=== PATIENT | male | born 1945 | race Caucasian/White ===

== ENCOUNTER 2022-10-04 16:47 | Observation (INO) | payer MEDICARE, SELFPAY ==
[2022-10-04] VITALS (26 sets, daily range): BP systolic 101–183; BP diastolic 49–124; PULSE 60–87; RESP 11–20; TEMP 36.4–36.6; O2SAT 94–99; BMI 33.2; BMI 33.6
--- NOTE | 2022-10-04 17:01 | ECG_ITS ---
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
--- NOTE | 2022-10-04 17:01 | CT_ITS ---
The [address] [address] Patient Name: EVITA WILLSON MRN: [id number] date: 1945 Sex: M Assigned Patient Location: ER Current Patient Location: ER Accession/Order Number: [id number] Exam Date: 10/04/2022 17:15 Report Date: 10/04/2022 17:40 At the request of: JARVIS NICOLE Procedure: CT stroke head/brain wo con CT stroke head/brain wo con, 10/04/2022 5:15 PM EDT INDICATION: Diplopia COMPARISON: None. TECHNIQUE: Axial CT images of the brain from skull base to vertex, including portions of the face and sinuses, were obtained without contrast. Multiplanar reformatted images were generated and reviewed as needed. Dose reduction techniques were achieved by using automated exposure control and/or adjustment of mA and/or kV according to patient size and/or use of iterative reconstruction technique. FINDINGS: CEREBRUM: Age-appropriate atrophy is present, without visible acute hemorrhage. There is a low-density focus in the right frontal lobe inferiorly. There appears to be associated volume loss, best appreciated on comparison with the opposite side. Periventricular low density change is demonstrated, consistent with chronic small vessel disease. CEREBELLUM: No edema, hemorrhage, mass, acute infarction, or inappropriate atrophy. BRAINSTEM: No acute infarct, hemorrhage or gross structural abnormality. CSF SPACES: Ventricles, cisterns, and sulci are appropriate for age. No hydrocephalus, subarachnoid hemorrhage, or mass. SKULL: No mass or other significant visible lesion. SINUSES: Limited views demonstrate no significant mucosal thickening or fluid. ORBITS: Limited views are unremarkable. OTHER: None. IMPRESSION: Age-related deep white matter changes consistent with chronic small vessel disease superimposed on overall findings of age-appropriate cortical atrophy. Low-density focus in the right frontal lobe inferiorly. Apparent fine loss favors this being a chronic finding. However, acute infarction is not entirely ruled out. Critical results were NOTIFIED by TELEPHONE BY Dr. Elma Ferrell MD to Zeus Nicole At 10/04/2022 5:30 PM EDT. Electronically authenticated by: Elma FERRELL Date: 10/04/2022 17:40
--- NOTE | 2022-10-04 17:07 | ED_ITS ---
HPI - Neuro Symptoms/Deficit General Chief Complaint: Altered Mental Status Stated Complaint: VISUAL DISTURBANCE Time Seen by Provider: 10/04/22 16:58 Source: patient and family Mode of arrival: walk-in Limitations: no limitations History of Present Illness HPI Narrative: Patient is a [age] male with a history of diabetes who presents to the emergency department for the evaluation of a right-sided headache that began this morning at 9 AM associated with double vision. He states he developed pain in the right gnosticist and behind the right eye. He states when either if his eyes are open independently, he has no visual changes but when both of his eyes are open he has double vision and some blurry vision to the right eye. He denies chest pain, shortness of breath, speech changes, peripheral paresthesias. He has had no recent upper respiratory illness. He states that he wears reading glasses but is waiting for prescription glasses to arise as his eye doctor told him that he should wear them all the time. He is on Eliquis daily. Related Data Home Medications Medication Instructions Recorded Confirmed apixaban 5 mg tablet (Eliquis) 5 mg PO BID 10/04/22 10/04/22 lisinopril 20 mg tablet 20 mg PO DAILY 10/04/22 10/04/22 lovastatin 20 mg tablet 20 mg PO DAILY 10/04/22 10/04/22 metformin 500 mg tablet 500 mg PO BID 10/04/22 10/04/22 omeprazole 40 mg capsule,delayed 40 mg PO DAILY 10/04/22 10/04/22 release Allergies Allergy/AdvReac Type Severity Reaction Status Date / Time No Known Drug Allergies Allergy Verified 10/04/22 16:52 Review of Systems ROS Constitutional Denies: fever or chills Eyes Reports: change in vision and blurry vision Ears, nose, mouth, and throat Denies: throat pain or neck pain Cardiovascular Denies: chest pain Respiratory Denies: shortness of breath Gastrointestinal Denies: nausea or vomiting Musculoskeletal Denies: back pain or neck pain Integumentary/Breast Denies: rash Neurological Reports: headache; Denies: numbness in extremities, weakness in extremities or slurred speech PFSH PFSH Social History Smoking status: Never smoker Do you think of yourself as: straight/heterosexual Gender Identity: male Exam Narrative Exam Narrative: Gen.: Awake, alert, in no distress Head: Normocephalic, atraumatic ENT: Moist mucous membranes, no photophobia Respiratory: No respiratory distress, lungs clear bilaterally Cardio: Regular rate and rhythm Gastrointestinal: Abdomen is soft, nondistended and nontender to palpation Extremities: Moves extremities equally, no injuries noted Psych: Normal mood and affect Neuro: No focal neuro deficit, clear speech, no extremity weakness or deficits Skin: Warm, dry, intact Constitutional Vital Signs - 24 hr 10/04/22 16:52 10/04/22 17:24 10/04/22 17:30 Temperature 97.8 F Pulse Rate 63 Pulse Rate [Monitor] 73 Respiratory Rate 16 18 Blood Pressure Blood Pressure [Right Arm] 150/81 H Pulse Oximetry 97 98 97 Oxygen Delivery Method Room Air 10/04/22 17:34 10/04/22 17:35 10/04/22 17:47 Temperature Pulse Rate 62 74 76 Pulse Rate [Monitor] Respiratory Rate 15 17 13 Blood Pressure 142/69 H 183/124 H Blood Pressure [Right Arm] Pulse Oximetry 97 97 96 Oxygen Delivery Method 10/04/22 17:48 10/04/22 18:00 10/04/22 18:20 Temperature Pulse Rate 69 84 Pulse Rate [Monitor] Respiratory Rate 16 16 Blood Pressure 125/81 H 141/74 H Blood Pressure [Right Arm] Pulse Oximetry 96 99 Oxygen Delivery Method 10/04/22 18:29 10/04/22 18:30 10/04/22 18:45 Temperature Pulse Rate 73 68 60 Pulse Rate [Monitor] Respiratory Rate 16 17 11 L Blood Pressure 134/70 H 110/49 L Blood Pressure [Right Arm] Pulse Oximetry 97 96 96 Oxygen Delivery Method 10/04/22 19:00 10/04/22 19:15 10/04/22 19:30 Temperature Pulse Rate 70 74 87 Pulse Rate [Monitor] Respiratory Rate 11 L 11 L 17 Blood Pressure 101/66 119/54 L Blood Pressure [Right Arm] Pulse Oximetry 96 96 95 Oxygen Delivery Method 10/04/22 19:45 10/04/22 19:46 10/04/22 19:46 Temperature Pulse Rate 79 74 68 Pulse Rate [Monitor] Respiratory Rate 20 14 13 Blood Pressure 154/80 H 154/80 H Blood Pressure [Right Arm] Pulse Oximetry 98 97 95 Oxygen Delivery Method 10/04/22 20:00 10/04/22 20:30 10/04/22 20:30 Temperature Pulse Rate 70 67 67 Pulse Rate [Monitor] Respiratory Rate 15 12 12 Blood Pressure 135/75 H 145/77 H 145/77 H Blood Pressure [Right Arm] Pulse Oximetry 97 94 L 95 Oxygen Delivery Method 10/04/22 21:00 10/04/22 21:30 10/04/22 22:01 Temperature Pulse Rate 63 68 68 Pulse Rate [Monitor] Respiratory Rate 13 13 12 Blood Pressure 111/54 L 107/58 L 140/86 H Blood Pressure [Right Arm] Pulse Oximetry 95 Oxygen Delivery Method 10/04/22 22:20 Temperature Pulse Rate Pulse Rate [Monitor] Respiratory Rate Blood Pressure 140/80 H Blood Pressure [Right Arm] Pulse Oximetry Oxygen Delivery Method Course Vital Signs Vital signs: Vital Signs Temperature 97.8 F 10/04/22 16:52 Pulse Rate 73 10/04/22 16:52 Respiratory Rate 16 10/04/22 16:52 Blood Pressure 150/81 H 10/04/22 16:52 Pulse Oximetry 97 10/04/22 16:52 Oxygen Delivery Method Room Air 10/04/22 16:52 Temperature 97.5 F L 10/04/22 22:29 Pulse Rate 76 10/05/22 00:00 Respiratory Rate 14 10/04/22 22:29 Blood Pressure 159/90 H 10/04/22 22:29 Pulse Oximetry 97 10/04/22 22:29 Oxygen Delivery Method Room Air 10/04/22 22:29 MDM - Neuro Symptoms/Deficit MDM Narrative Medical decision making narrative: Patient was treated with IV Reglan, Benadryl, Decadron with complete cessation of his headache and he had improvement of the double vision as well. His lab studies are within normal limits, he was sent immediately for a CT stroke protocol of the head with noncontrast study which showed a possible lesion in the right frontal lobe which is not able to be ruled out as an acute infarction by the radiologist. Patient was sent for additional CTA of the head and neck with no evidence of acute abnormalities. He is resting comfortably on reevaluation. There was significant delay in the radiology read as the radiology staff had difficulty crossing the images over to the radiologist. 2144: [facility] was contacted for stroke interventional team. I discussed the case with Dr. Quintero who is in agreement with treatment plan to admit the patient here for observation, rule out with MRI and Tylenol neurology consult. Patient was given a full strength aspirin in the emergency department, Dr. Quintero recommended against additional anticoagulation. On reevaluation prior to admission to hospitalist, Dr. asencio, the patient is resting comfortably and eating Jell-O with significant improvement of headache and cessation of double vision. Patient and family are in agreement with treatment plan. Medical Records Attestation: I reviewed the patient's medical records. Lab Data Attestation: I reviewed the patient's lab results. Labs: Lab Results 10/04/22 10/04/22 Range/Units 16:59 17:00 WBC 5.2 (4.0-11.0) 10^3/uL RBC 3.89 L (4.70-6.10) 10^6/uL Hgb 11.9 L (14.0-18.0) g/dL Hct 35.2 L (42.0-54.0) % MCV 90.5 (80.0-94.0) fL MCH 30.6 (25.9-34.0) pg MCHC 33.8 (29.9-35.2) g/dL RDW 13.9 (11.0-15.0) % Plt Count 180 (150-450) 10^3/uL MPV 9.9 (9.5-13.5) fL Neut % (Auto) 58.7 (43.0-75.0) % Lymph % (Auto) 26.7 (20.5-60.0) % Mathews % (Auto) 9.8 (1.7-12.0) % Eos % (Auto) 3.8 (0.9-7.0) % Baso % (Auto) 0.6 (0.2-2.0) % Neut # (Auto) 3.1 (1.4-6.5) 10^3/uL Lymph # (Auto) 1.4 (1.2-3.8) 10^3/uL Mathews # (Auto) 0.5 (0.3-0.8) 10^3/uL Eos # (Auto) 0.2 (0.0-0.7) 10^3/uL Baso # (Auto) 0.0 (0.0-0.1) 10^3/uL Abs Immat Gran (auto) 0.02 (0.00-0.03) 10^3/uL Imm/Tot Granulo (auto) 0.4 (0.0-0.5) % PT 10.3 (9.0-11.6) sec INR 0.97 APTT 35.0 (22.3-36.2) sec Sodium 129 L (136-145) mmol/L Potassium 4.1 (3.5-5.1) mmol/L Chloride 96 L (98-107) mmol/L Carbon Dioxide 26.0 (21.0-32.0) mmol/L Anion Gap 11.1 BUN 26.0 H (7.0-18.0) mg/dL Creatinine 0.99 (0.70-1.30) mg/dL Est GFR ( Amer) >60 (>=60) Est GFR (Non-Af Amer) >60 (>=60) BUN/Creatinine Ratio 26.3 Glucose 140 H (74-106) mg/dL Calcium 8.5 (8.5-10.1) mg/dL Total Bilirubin 0.3 (0.2-1.0) mg/dL AST 16 (15-37) U/L ALT 21 (16-63) U/L Alkaline Phosphatase 68 (46-116) U/L Troponin I High Sens 18.5 (4.0-76.1) pg/mL Total Protein 7.4 (6.4-8.2) g/dL Albumin 3.7 (3.4-5.0) g/dL Globulin 3.7 g/dL Albumin/Globulin Ratio 1.0 POC Glucose 139 H (74-106) mg/dL Imaging Data CT scan - head: Attestation: I have reviewed the pertinent imaging results. Radiologist's impression: Procedure: CT stroke head/brain wo con CT stroke head/brain wo con, 10/04/2022 5:15 PM EDT INDICATION: Diplopia COMPARISON: None. TECHNIQUE: Axial CT images of the brain from skull base to vertex, including portions of the face and sinuses, were obtained without contrast. Multiplanar reformatted images were generated and reviewed as needed. Dose reduction techniques were achieved by using automated exposure control and/or adjustment of mA and/or kV according to patient size and/or use of iterative reconstruction technique. FINDINGS: CEREBRUM: Age-appropriate atrophy is present, without visible acute hemorrhage. There is a low-density focus in the right frontal lobe inferiorly. There appears to be associated volume loss, best appreciated on comparison with the opposite side. Periventricular low density change is demonstrated, consistent with chronic small vessel disease. CEREBELLUM: No edema, hemorrhage, mass, acute infarction, or inappropriate atrophy. BRAINSTEM: No acute infarct, hemorrhage or gross structural abnormality. CSF SPACES: Ventricles, cisterns, and sulci are appropriate for age. No hydrocephalus, subarachnoid hemorrhage, or mass. SKULL: No mass or other significant visible lesion. SINUSES: Limited views demonstrate no significant mucosal thickening or fluid. ORBITS: Limited views are unremarkable. OTHER: None. IMPRESSION: Age-related deep white matter changes consistent with chronic small vessel disease superimposed on overall findings of age-appropriate cortical atrophy. Low-density focus in the right frontal lobe inferiorly. Apparent fine loss favors this being a chronic finding. However, acute infarction is not entirely ruled out. Critical results were NOTIFIED by TELEPHONE BY Dr. Elma Ferrell MD to Zeus Madison At 10/04/2022 5:30 PM EDT. Electronically authenticated by: Elma FERRELL Date: 10/04/2022 17:40 ECG Data Attestation: ?I have reviewed the pertinent ECG results. (Normal sinus rhythm at a rate of sixty-two, no acute ST elevation or ectopy. EKG reviewed by attending physician.) ECG interpretation date: 10/04/22 ECG interpretation time: 21:42 Discharge Plan Discharge Chief Complaint: Altered Mental Status Clinical Impression: Double vision, Headache Patient Disposition: Admitted as Observation Time of Disposition Decision: 21:56 Condition: Good Discharge Date/Time: 10/04/22 22:21
[2022-10-04 17:09] LABS: Glucometer 139 mg/dL (74-106)
[2022-10-04] MEDS: DEXAMETHASONE SODIUM PHOSPHATE 10 MG/ML VIAL IV (17:27)
[2022-10-04] MEDS: DIPHENHYDRAMINE HCL 50 MG/ML (1ML) VIAL 12.5 MG IV (17:27)
[2022-10-04] MEDS: METOCLOPRAMIDE HCL 10 MG/2 ML VIAL INJ (17:27)
[2022-10-04 17:37] LABS: Basophils Percent Auto 0.6 % (0.2-2.0); Eosinophils Absolute Auto 0.2 10^3/uL (0.0-0.7); Eosinophils Percent Auto 3.8 % (0.9-7.0); Hematocrit 35.2 % (42.0-54.0); Hemoglobin 11.9 g/dL (14.0-18.0); Immature Granulocytes Abs Auto 0.02 10^3/uL (0.00-0.03); Immature Granulocytes Pct Auto 0.4 % (0.0-0.5); Lymphocytes Absolute Auto 1.4 10^3/uL (1.2-3.8); Lymphocytes Percent Auto 26.7 % (20.5-60.0); Mean Corpuscular HGB Conc 33.8 g/dL (29.9-35.2); Mean Corpuscular Hemoglobin 30.6 pg (25.9-34.0); Mean Corpuscular Volume 90.5 fL (80.0-94.0); Mean Platelet Volume 9.9 fL (9.5-13.5); Monocytes Absolute Auto 0.5 10^3/uL (0.3-0.8); Monocytes Percent Auto 9.8 % (1.7-12.0); Neutrophils Absolute Auto 3.1 10^3/uL (1.4-6.5); Neutrophils Percent Auto 58.7 % (43.0-75.0); Platelet Count 180 10^3/uL (150-450); Red Blood Count 3.89 10^6/uL (4.70-6.10); Red Cell Distribution Width 13.9 % (11.0-15.0); White Blood Count 5.2 10^3/uL (4.0-11.0)
[2022-10-04 17:54] LABS: Alanine Aminotransferase 21 U/L (16-63); Albumin Level 3.7 g/dL (3.4-5.0); Alkaline Phosphatase 68 U/L (46-116); Anion Gap 11.1; Aspartate Amino Transferase 16 U/L (15-37); BUN Creatinine Ratio 26.3; Bilirubin Total 0.3 mg/dL (0.2-1.0); Calcium 8.5 mg/dL (8.5-10.1); Chloride 96 mmol/L (98-107); Estimated GFR (African America >60 (>=60); Estimated GFR (Non-African Ame >60 (>=60); Globulin 3.7 g/dL; Glucose 140 mg/dL (74-106); INR 0.97; Potassium 4.1 mmol/L (3.5-5.1); Prothrombin Time 10.3 sec (9.0-11.6); Sodium 129 mmol/L (136-145); Total Protein 7.4 g/dL (6.4-8.2); Troponin I High Sensitivity 18.5 pg/mL (4.0-76.1)
--- NOTE | 2022-10-04 17:58 | CT_ITS ---
[address] [address] Patient Name: EVITA WILLSON MRN: [id number] date: 1945 Sex: M Assigned Patient Location: ER Current Patient Location: ER Accession/Order Number: [id number] Exam Date: 10/04/2022 18:10 Report Date: 10/04/2022 21:32 At the request of: JARVIS NICOLE Procedure: CT angio head EXAM: CT angio head, CT angio neck HISTORY: Headache, right eye pain and double vision. COMPARISON: Head CT without contrast on 10/04/2022. TECHNIQUE: Following IV administration of iodinated contrast, axial CT scans of the head and neck were obtained. MPR and MIP images images were obtained. Carotid stenosis is based on NASCET criteria. Dose reduction techniques were achieved by using automated exposure control and/or adjustment of mA and/or kV according to patient size and/or use of iterative reconstruction technique. FINDINGS: CTA OF THE HEAD: No major branch occlusion or significant intracranial stenosis. No aneurysm. Patent dural venous sinuses. CTA OF THE NECK: No abnormal soft tissue mass in the neck. The visualized lungs are clear. Osseous structures are intact. Aortic arch shows no aneurysm. The great vessels of the aortic arch show no significant stenosis. Vertebral arteries show no dissection. 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 The right vertebral artery shows no significant stenosis. Common carotids and internal carotids show no significant stenosis or dissection. IMPRESSION: No large vessel occlusion or significant intracranial stenosis. Patent dural venous sinuses. Common carotids, internal carotids and the right vertebral artery show no significant stenosis. 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 Electronically authenticated by: LARA BILLINGS Date: 10/04/2022 21:32
--- NOTE | 2022-10-04 17:58 | CT_ITS ---
[address] [address] Patient Name: EVITA WILLSON MRN: [id number] date: 1945 Sex: M Assigned Patient Location: ER Current Patient Location: Accession/Order Number: [id number] Exam Date: 10/04/2022 18:10 Report Date: 10/04/2022 21:32 At the request of: JARVIS NICOLE Procedure: CT angio neck EXAM: CT angio head, CT angio neck HISTORY: Headache, right eye pain and double vision. COMPARISON: Head CT without contrast on 10/04/2022. TECHNIQUE: Following IV administration of iodinated contrast, axial CT scans of the head and neck were obtained. MPR and MIP images images were obtained. Carotid stenosis is based on NASCET criteria. Dose reduction techniques were achieved by using automated exposure control and/or adjustment of mA and/or kV according to patient size and/or use of iterative reconstruction technique. FINDINGS: CTA OF THE HEAD: No major branch occlusion or significant intracranial stenosis. No aneurysm. Patent dural venous sinuses. CTA OF THE NECK: No abnormal soft tissue mass in the neck. The visualized lungs are clear. Osseous structures are intact. Aortic arch shows no aneurysm. The great vessels of the aortic arch show no significant stenosis. Vertebral arteries show no dissection. 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 The right vertebral artery shows no significant stenosis. Common carotids and internal carotids show no significant stenosis or dissection. IMPRESSION: No large vessel occlusion or significant intracranial stenosis. Patent dural venous sinuses. Common carotids, internal carotids and the right vertebral artery show no significant stenosis. 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 Electronically authenticated by: LARA BILLINGS Date: 10/04/2022 21:32
[2022-10-04] MEDS: ASPIRIN 325 MG TABLET PO (22:12)
[2022-10-05] VITALS (7 sets, daily range): BP systolic 138–153; BP diastolic 61–74; PULSE 70–89; RESP 18; TEMP 36.5; O2SAT 93–95; BMI 33.6
--- NOTE | 2022-10-05 01:24 | CA_ITS ---
Patient: EVITA WILLSON. Exam Date: 10/05/2022 : 1945 Gender:M Ordering : JESSE Swenson SISTER Admission #: [id number] Family : PRITI MOYA . Order #: [id number] CLICK HERE TO VIEW EXAM ECHOCARDIOGRAM REPORT PROCEDURE: CA ECHO DOPPLER COMPLETE INDICATIONS: CVA COMPARISON: None. DESCRIPTION: COMPLETE ECHOCARDIOGRAM Real-time transthoracic echocardiography with 2D, M-mode, spectral and color flow Doppler performed. QUALITY: Technical quality was good. LEFT VENTRICLE: Normal chamber size. Mild concentric left ventricular hypertrophy. LV EF: Global left ventricular systolic function is hyperdynamic; visually estimated ejection fraction is 65 to 70%. No significant wall motion abnormalities. DIASTOLIC: Grade II diastolic dysfunction. ATRIAL SEPTUM: Intact atrial septum. 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 LEFT ATRIUM: Mild dilatation. RIGHT ATRIUM: Severe dilatation. RIGHT VENTRICLE: Normal chamber size. Normal right ventricular systolic function. TRICUSPID VALVE: Normal mobility and thickness. No stenosis with trivial regurgitation. Mild pulmonary hypertension. RVSP 40mmHg MITRAL VALVE: Normal mobility and thickness. No evidence of mitral valve stenosis. Mild mitral annular calcification. Trivial mitral regurgitation. AORTIC VALVE: Normal trileaflet appearance. Moderately calcified aortic valve. Moderately diminished mobility. Doppler velocity suggest moderate aortic valve stenosis. DVI 0.3, LULY 1.2cm2, AV Peak velocity 3.5m/s, mean gradient 29mmHg.Trivial aortic regurgitation. AORTIC ROOT: Normal diameter and appearance. PULMONIC VALVE: Normal thickness and mobility. No stenosis. No regurgitation. PERICARDIUM: Anterior free space; trivial effusion versus fat pad.. IVC: Collapses with inspirations. Normal size. PLEURA: CONCLUSION: 1. Global left ventricular systolic function is hyperdynamic; visually estimated ejection fraction is 65 to 70%. 2. Mild left ventricular hypertrophy. 3. Biatrial enlargement. 4. Grade 2, moderate diastolic dysfunction. 5. The right ventricle is normal in size and systolic function. 6. Mildly elevated right ventricular systolic pressure; RVSP 40 mmHg. 7. Moderate aortic valve stenosis. 8. Anterior free space; trivial effusion versus fat pad. 9. 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 Adult Echocardiography Procedure Report Left Ventricle LVEDD (3.7 - 5.6 cm): 4.63 cm LVESD (2.2 - 4.0 cm): 3.17 cm LVIVS thickness (0.6 - 1.2 cm): 1.11 cm LVPW thickness (0.5 - 1.0 cm): 1.12 cm e': 0.07 m/s E - e': 14.23 LVOT Max Gradient: 4.40 mm[Hg], 4.13 mm[Hg] LVOT Area (cm2): 1.03 m/s Peak Velocity (LVOT): 1.05 m/s, 1.02 m/s Mean Velocity (LVOT): 0.76 m/s LVOT Diameter 2.26 cm Left Ventricular Ejection Fraction: 70.50 % Left Atrium LA Volume Index (2D A2C): 56.24 ml/m2 Left Atrium Systolic Dimension: 4.34 cm Mitral Valve MV E to A Ratio: 0.82 Mitral Valve A-Wave Peak Velocity: 1.17 m/s Mitral Valve E-Wave Peak Velocity: 0.96 m/s Right Ventricle RV Internal Diastolic Dimension: 3.40 cm Aorta AO Root Diam: 3.34 cm Ascending Ao Diam: 3.19 cm Aortic Valve AoV Area (Peak Jomar): 1.23 cm2, 1.20 cm2, 1.18 cm2 AoV Area (VTI): 1.32 cm2, 1.28 cm2, 1.28 cm2 Peak Velocity(Antegrade Flow): 3.51 m/s, 3.47 m/s, 3.12 m/s, 3.24 m/s, 3.49 m/s Peak Gradient(Antegrade Flow): 49.29 mm[Hg], 48.10 mm[Hg], 38.97 mm[Hg], 41.89 mm[Hg], 48.83 mm[Hg] Mean Velocity(Antegrade Flow): 2.53 m/s, 2.56 m/s, 2.30 m/s, 2.36 m/s, 2.52 m/s Mean Gradient(Antegrade Flow): 28.51 mm[Hg], 29.02 mm[Hg], 23.92 mm[Hg], 25.05 mm[Hg], 28.22 mm[Hg] Velocity Time Integral: 76.52 cm, 76.12 cm, 70.88 cm, 73.54 cm, 74.69 cm Tricuspid Valve Peak Velocity (Regurgitant Flow): 2.84 m/s, 3.04 m/s Pulmonic Valve Mean Gradient: 4.61 mm[Hg], 4.34 mm[Hg], 4.80 mm[Hg], 4.50 mm[Hg] Mean Velocity: 1.02 m/s, 0.99 m/s, 1.04 m/s, 1.00 m/s Peak Velocity: 1.37 m/s Peak Gradient: 8.42 mm[Hg], 6.88 mm[Hg], 7.81 mm[Hg], 6.88 mm[Hg] Right Atrium Right Atrium Systolic Pressure: 33.90 ml, 33.90 ml Dictated by: Olinda Chatman M.D. on 10/05/2022 at 13:20 Approved by: Olinda Chatman M.D. on 10/05/2022 at 13:28
--- NOTE | 2022-10-05 01:34 | P.PN_ITS ---
Progress Note: Subjective Subjective Interval history: diplopia HPI: this is a 77 yo male with a history of diabetes, AFIb, HTN, Dyslipidemia who presents to the emergency department for the evaluation of a right-sided headache that began this morning at 9 AM associated with double vision. He states he developed pain in the right orthodox and behind the right eye. He states when either if his eyes are open independently, he has no visual changes but when both of his eyes are open he has double vision and some blurry vision to the right eye. He denies chest pain, shortness of breath, speech changes, peripheral paresthesias. He has had no recent upper respiratory illness. He states that he wears reading glasses but is waiting for prescription glasses to arise as his eye doctor told him that he should wear them all the time. He is on Eliquis daily.. Evaluation in Ed was negative for acute findings. He has been evaluated by Teleneurologist and deemed not to be a candidate for tPA> Further w-up recommended Exam Narrative Exam Narrative: NAD, PERRLA< EOMI, Obese Neck - supple, thyroid not enlarged CTA B/L S1, S@ no Murmur or gallop ABd - obese, NT, ND, + BSs Ext - no clubbing, cyanosis or edema Neuro - diplopia, no focal deficits AAO X 3 Constitutional Vital Signs - 24 hr 10/04/22 16:52 10/04/22 17:24 10/04/22 17:30 Temperature 97.8 F Pulse Rate 63 Pulse Rate [Monitor] 73 Respiratory Rate 16 18 Blood Pressure Blood Pressure [Right Arm] 150/81 H Pulse Oximetry 97 98 97 Oxygen Delivery Method Room Air 10/04/22 17:34 10/04/22 17:35 10/04/22 17:47 Temperature Pulse Rate 62 74 76 Pulse Rate [Monitor] Respiratory Rate 15 17 13 Blood Pressure 142/69 H 183/124 H Blood Pressure [Right Arm] Pulse Oximetry 97 97 96 Oxygen Delivery Method 10/04/22 17:48 10/04/22 18:00 10/04/22 18:20 Temperature Pulse Rate 69 84 Pulse Rate [Monitor] Respiratory Rate 16 16 Blood Pressure 125/81 H 141/74 H Blood Pressure [Right Arm] Pulse Oximetry 96 99 Oxygen Delivery Method 10/04/22 18:29 10/04/22 18:30 10/04/22 18:45 Temperature Pulse Rate 73 68 60 Pulse Rate [Monitor] Respiratory Rate 16 17 11 L Blood Pressure 134/70 H 110/49 L Blood Pressure [Right Arm] Pulse Oximetry 97 96 96 Oxygen Delivery Method 10/04/22 19:00 10/04/22 19:15 10/04/22 19:30 Temperature Pulse Rate 70 74 87 Pulse Rate [Monitor] Respiratory Rate 11 L 11 L 17 Blood Pressure 101/66 119/54 L Blood Pressure [Right Arm] Pulse Oximetry 96 96 95 Oxygen Delivery Method 10/04/22 19:45 10/04/22 19:46 10/04/22 19:46 Temperature Pulse Rate 79 74 68 Pulse Rate [Monitor] Respiratory Rate 20 14 13 Blood Pressure 154/80 H 154/80 H Blood Pressure [Right Arm] Pulse Oximetry 98 97 95 Oxygen Delivery Method 10/04/22 20:00 10/04/22 20:30 10/04/22 20:30 Temperature Pulse Rate 70 67 67 Pulse Rate [Monitor] Respiratory Rate 15 12 12 Blood Pressure 135/75 H 145/77 H 145/77 H Blood Pressure [Right Arm] Pulse Oximetry 97 94 L 95 Oxygen Delivery Method 10/04/22 21:00 10/04/22 21:30 10/04/22 22:01 Temperature Pulse Rate 63 68 68 Pulse Rate [Monitor] Respiratory Rate 13 13 12 Blood Pressure 111/54 L 107/58 L 140/86 H Blood Pressure [Right Arm] Pulse Oximetry 95 Oxygen Delivery Method 10/04/22 22:30 10/04/22 22:20 10/04/22 22:29 Temperature 97.5 F L Pulse Rate 86 82 Pulse Rate [Monitor] Respiratory Rate 16 Blood Pressure 140/80 H Blood Pressure [Right Arm] 159/90 H Pulse Oximetry 97 Oxygen Delivery Method Room Air 10/04/22 22:29 10/04/22 22:29 10/05/22 00:00 Temperature Pulse Rate 76 Pulse Rate [Monitor] 82 82 Respiratory Rate 14 14 Blood Pressure Blood Pressure [Right Arm] Pulse Oximetry 97 Oxygen Delivery Method Room Air Progress Note: Objective Labs Labs: Short CBC 10/04/22 Range/Units 17:00 WBC 5.2 (4.0-11.0) 10^3/uL Hgb 11.9 L (14.0-18.0) g/dL Hct 35.2 L (42.0-54.0) % Plt Count 180 (150-450) 10^3/uL BMP 10/04/22 17:00 Sodium 129 L Potassium 4.1 Chloride 96 L Carbon Dioxide 26.0 BUN 26.0 H Creatinine 0.99 Glucose 140 H Calcium 8.5 Liver Function 10/04/22 Range/Units 17:00 Total Bilirubin 0.3 (0.2-1.0) mg/dL AST 16 (15-37) U/L ALT 21 (16-63) U/L Alkaline Phosphatase 68 (46-116) U/L Albumin 3.7 (3.4-5.0) g/dL Progress Note: A&P Assessment and Plan (1) Double vision: Assessment and Plan: patient presents with acute neurological deficits found to be not a cnadididate for tPa CT - (-) Has being evaluated by tele- Neuro Recommendations to continue Eliquis and ASA MRI of the brain and ECHO with boublled ordered F/U with Neuro in AM (2) Headache: Assessment and Plan: symptoms control (3) Afib: Assessment and Plan: symptoms control (4) HTN (hypertension): Assessment and Plan: permissive HTN going to be allowed (5) Dyslipidemia: Assessment and Plan: continue with statins, F/U lipid profile (6) Obesity: Plan differ for OP management Telemedicine Attestation Telemedicine Attestation I conducted this encounter from [[place]] via secure live, [id number] video conference with the patient, CHARGE TEST-CHARGES located at [facility] with [diplopia]. Prior to the interview, the risks and benefits of telemedicine were discussed with the patient and verbal consent was obtained.
[2022-10-05 04:55] LABS: Basophils Percent Auto 0.2 % (0.2-2.0); Eosinophils Percent Auto 0.2 % (0.9-7.0); Hematocrit 35.6 % (42.0-54.0); Immature Granulocytes Abs Auto 0.03 10^3/uL (0.00-0.03); Immature Granulocytes Pct Auto 0.6 % (0.0-0.5); Lymphocytes Absolute Auto 0.7 10^3/uL (1.2-3.8); Lymphocytes Percent Auto 12.6 % (20.5-60.0); Mean Corpuscular HGB Conc 33.7 g/dL (29.9-35.2); Mean Corpuscular Hemoglobin 30.4 pg (25.9-34.0); Mean Corpuscular Volume 90.1 fL (80.0-94.0); Mean Platelet Volume 9.8 fL (9.5-13.5); Monocytes Absolute Auto 0.2 10^3/uL (0.3-0.8); Monocytes Percent Auto 2.8 % (1.7-12.0); Neutrophils Absolute Auto 4.5 10^3/uL (1.4-6.5); Neutrophils Percent Auto 83.6 % (43.0-75.0); Platelet Count 180 10^3/uL (150-450); Red Blood Count 3.95 10^6/uL (4.70-6.10); Red Cell Distribution Width 13.5 % (11.0-15.0); White Blood Count 5.3 10^3/uL (4.0-11.0)
[2022-10-05 05:15] LABS: Chol HDL Ratio 3.6; Cholesterol 157 mg/dL (<=200); HDL Cholesterol 44 mg/dL (40-60); LDL Cholesterol Calculated 99.4 mg/dL; Triglycerides 68 mg/dL (<=150); VLDL CHOLESTEROL 13.6 mg/dL
[2022-10-05 07:24] LABS: Glucometer 217 mg/dL (74-106)
[2022-10-05] MEDS: INSULIN ASPART 300 UNIT/3 ML PEN SUBQ ×2 (08:56→11:49)
[2022-10-05] MEDS: APIXABAN 5 MG TABLET PO (08:57)
[2022-10-05] MEDS: LISINOPRIL 20 MG TABLET PO (08:57)
[2022-10-05] MEDS: OMEPRAZOLE 40 MG CAPSULE.DR PO (08:57)
[2022-10-05] MEDS: ASPIRIN 325 MG TABLET.DR PO (08:57)
[2022-10-05 10:24] LABS: Estimated Average Glucose 126 mg/dL
[2022-10-05 10:33] LABS: Thyroid Stimulating Hormone 0.514 uIU/mL (0.358-3.740)
[2022-10-05 10:42] LABS: Alanine Aminotransferase 27 U/L (16-63); Albumin Level 3.6 g/dL (3.4-5.0); Alkaline Phosphatase 67 U/L (46-116); Anion Gap 15.7; Aspartate Amino Transferase 19 U/L (15-37); Bilirubin Total 0.3 mg/dL (0.2-1.0); Calcium 8.7 mg/dL (8.5-10.1); Carbon Dioxide 22.9 mmol/L (21.0-32.0); Chloride 101 mmol/L (98-107); Estimated GFR (African America >60 (>=60); Estimated GFR (Non-African Ame >60 (>=60); Globulin 3.7 g/dL; Glucose 222 mg/dL (74-106); Potassium 4.6 mmol/L (3.5-5.1); Sodium 135 mmol/L (136-145); Total Protein 7.3 g/dL (6.4-8.2)
[2022-10-05 11:20] LABS: Glucometer 180 mg/dL (74-106)
--- NOTE | 2022-10-05 11:37 | SWNOTE1 ---
CONCHITA met with pt to discuss dc needs. Pt lives at home with his . 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 Pt does not use any medical equipment and is independent at home. At this time pt does not have any discharge needs. CONCHITA reviewed [facility] form with pt, he voiced understanding. Pt signed form, original given to pt and copy placed on chart.
--- NOTE | 2022-10-05 11:42 | CT_ITS ---
[address] [address] Patient Name: EVITA WILLSON MRN: [id number] date: 1945 Sex: M Assigned Patient Location: [place] Current Patient Location: [place] Accession/Order Number: [id number] Exam Date: 10/05/2022 12:20 Report Date: 10/05/2022 13:05 At the request of: PRITI MOYA Procedure: CT stroke head/brain wo con EXAMINATION: CT stroke head/brain wo con HISTORY: cannot do MRI, recheck/compare to 10/04/22 COMPARISON: No relevant comparison available. TECHNIQUE: Axial CT images were obtained without IV contrast. Dose reduction techniques were achieved by using automated exposure control and/or adjustment of mA and/or kV according to patient size and/or use of iterative reconstruction technique. FINDINGS: BRAIN: No edema, hemorrhage, mass, acute infarction, or inappropriate atrophy. CSF SPACES: No hydrocephalus, subarachnoid hemorrhage, or mass. Appropriate for age. SKULL: No fracture, mass, or other significant visible lesion. SINUSES: No significant mucosal thickening or fluid on the limited views. ORBITS: No appreciable abnormality on the limited views. OTHER: Negative IMPRESSION: 1. No acute cranial hemorrhage or CT evidence of acute ischemia. 2. Stable atrophy and chronic small vessel ischemic changes. 3. Clear sinuses. Electronically authenticated by: LEXI PRESLEY Date: 10/05/2022 13:05
[2022-10-05] MEDS: ACETAMINOPHEN 325 MG TABLET 650 MG PO (11:49)
--- NOTE | 2022-10-05 13:57 | P.HP_ITS ---
H&P: HPI History of Present Illness Chief complaint: VISUAL DISTURBANCE, HEADACHE, RULE OUT CVA Narrative: patient is a 77-year-old male with past medical history of type 2 diabetes, hypertension, chronic atrial fibrillation on Eliquis, and hyperlipidemia who presented yesterday with sudden onset of altered vision of the right eye. Patient also reports he has a headache that is more focused behind the right eye. He denied any slurred speech and a right arm numbness or tingling any confusion. He reports that this is happening before that only lasted a few minutes and resolved on its own. This time the symptoms seems to be more consistent. He has been worked up by an coiled tubing operator recently who told him there was an abnormality in his eye exam on the right. Patient denies ever seeing an purchasing coordinator in the past. He does have type 2 diabetes that reports he has never been told he has diabetic retinopathy. He denies ever having a past history of strokes. He follows regularly with his value analysis coordinator at [facility] and he was scheduled to have a follow-up visit with him in November. He says blood pressures been under control he denies any rapid heart rates and he has been compliant on his eliquis. He has an ex-smoker quit about forty years ago and today he reports his only issue is right sided visual changes mostly with double vision but when he covers either his left or right eye he can see fine but when trying to see out of both eyes at the same time is when his double vision occurs. The emergency department performed a CTA of the head and neck there was no evidence of any carotid artery stenosis, there was small vessel ischemic changes no acute strokes were noted. The only finding was a mild left vertebral artery stenosis. Patient also has had a echocardiogram this morning. Telemetry stroke was notified of patient in the Emergency Room Dr. Quintero recommended observation and to reconsult them today. Review of Systems ROS Narrative ROS: a complete review of systems were reviewed with patient and are positive as below or listed in History of Chief Complaint. General: no fever, chills, night sweats Head: no headache, trauma, visual changes, nausea or vomiting Skin: no reported rashes, itching or sores Eyes: blurriness of vision and double vision of the right eye Ears: no reported hearing loss, vertigo, earache, or tinnitus Throat: no sore throat, hoarseness, swelling of neck, or tongue pain Heart: no chest pain Lungs: no shortness of breath or cough GI: no diarrhea or vomiting/nausea Urinary: no urinary urgency, frequency or pain Neuro: no numbness or tingling HEM: no bleeding issues or bruising ENDO: no thyroid problems Psych: no anxiety or depression PFSH PFS Social History Smoking status: Never smoker Do you think of yourself as: straight/heterosexual Gender Identity: male Meds Home Medications and Allergies Home Medications Medication Instructions Recorded Confirmed Type apixaban 5 mg tablet (Eliquis) 5 mg PO BID 10/04/22 10/04/22 History lisinopril 20 mg tablet 20 mg PO DAILY 10/04/22 10/04/22 History lovastatin 20 mg tablet 20 mg PO DAILY 10/04/22 10/04/22 History metformin 500 mg tablet 500 mg PO BID 10/04/22 10/04/22 History omeprazole 40 mg capsule,delayed 40 mg PO DAILY 10/04/22 10/04/22 History release Allergies Allergy/AdvReac Type Severity Reaction Status Date / Time No Known Drug Allergies Allergy Verified 10/04/22 16:52 Exam Narrative Exam Narrative: General: Patient is alert, and oriented to person, place and time with normal affect, proper hygiene Skin: no visible rashes, or ulcers Head: atraumatic, acephalic Eyes: PERRLA, no nystagmus present, conjunctiva clear, no scleral icterus, patient reports normal vision out of right and left eyes when opposite eye is covered but together notes blurriness and double vision of right eye Ears: normal Tympanic Membrane, normal gross auditory acuity Nose: symmetric, no discharge, no maxillary or frontal sinus tenderness Mouth/Throat: no erythema, exudate, or tonsillar enlargement, normal dentition Neck: no masses palpated, normal thyroid, no JVD or audible carotid bruits Heart: Normal rate and rhythm, no murmurs/rubs/gallops Lungs: no audible wheezes, crackles and normal breath sounds all lung murillo Abdomen: Normal audible bowel sounds, no distension, No palpable masses, no organomegaly, no rebound/guarding/ or rigidity Musculoskeletal: muscle atrophy noted, ROM is limited due to being in hospital bed, no swelling bilateral lower extremities Vascular: Normal carotid, radial, femoral, posterior tibial, and dorsalis pedis pulses Lymph: no supraclavicular, axillary, or anterior/posterior cervical adenopathy Neuro: CN II-X grossly intact, normal sensation upper and lower extremities Constitutional Vital Signs - 24 hr 10/04/22 16:52 10/04/22 17:24 10/04/22 17:30 Temperature 97.8 F Pulse Rate 63 Pulse Rate [Monitor] 73 Respiratory Rate 16 18 Blood Pressure Blood Pressure [Left Arm] Blood Pressure [Right Arm] 150/81 H Pulse Oximetry 97 98 97 Oxygen Delivery Method Room Air 10/04/22 17:34 10/04/22 17:35 10/04/22 17:47 Temperature Pulse Rate 62 74 76 Pulse Rate [Monitor] Respiratory Rate 15 17 13 Blood Pressure 142/69 H 183/124 H Blood Pressure [Left Arm] Blood Pressure [Right Arm] Pulse Oximetry 97 97 96 Oxygen Delivery Method 10/04/22 17:48 10/04/22 18:00 10/04/22 18:20 Temperature Pulse Rate 69 84 Pulse Rate [Monitor] Respiratory Rate 16 16 Blood Pressure 125/81 H 141/74 H Blood Pressure [Left Arm] Blood Pressure [Right Arm] Pulse Oximetry 96 99 Oxygen Delivery Method 10/04/22 18:29 10/04/22 18:30 10/04/22 18:45 Temperature Pulse Rate 73 68 60 Pulse Rate [Monitor] Respiratory Rate 16 17 11 L Blood Pressure 134/70 H 110/49 L Blood Pressure [Left Arm] Blood Pressure [Right Arm] Pulse Oximetry 97 96 96 Oxygen Delivery Method 10/04/22 19:00 10/04/22 19:15 10/04/22 19:30 Temperature Pulse Rate 70 74 87 Pulse Rate [Monitor] Respiratory Rate 11 L 11 L 17 Blood Pressure 101/66 119/54 L Blood Pressure [Left Arm] Blood Pressure [Right Arm] Pulse Oximetry 96 96 95 Oxygen Delivery Method 10/04/22 19:45 10/04/22 19:46 10/04/22 19:46 Temperature Pulse Rate 79 74 68 Pulse Rate [Monitor] Respiratory Rate 20 14 13 Blood Pressure 154/80 H 154/80 H Blood Pressure [Left Arm] Blood Pressure [Right Arm] Pulse Oximetry 98 97 95 Oxygen Delivery Method 10/04/22 20:00 10/04/22 20:30 10/04/22 20:30 Temperature Pulse Rate 70 67 67 Pulse Rate [Monitor] Respiratory Rate 15 12 12 Blood Pressure 135/75 H 145/77 H 145/77 H Blood Pressure [Left Arm] Blood Pressure [Right Arm] Pulse Oximetry 97 94 L 95 Oxygen Delivery Method 10/04/22 21:00 10/04/22 21:30 10/04/22 22:01 Temperature Pulse Rate 63 68 68 Pulse Rate [Monitor] Respiratory Rate 13 13 12 Blood Pressure 111/54 L 107/58 L 140/86 H Blood Pressure [Left Arm] Blood Pressure [Right Arm] Pulse Oximetry 95 Oxygen Delivery Method 10/04/22 22:30 10/04/22 22:20 10/04/22 22:29 Temperature 97.5 F L Pulse Rate 86 82 Pulse Rate [Monitor] Respiratory Rate 16 Blood Pressure 140/80 H Blood Pressure [Left Arm] Blood Pressure [Right Arm] 159/90 H Pulse Oximetry 97 Oxygen Delivery Method Room Air 10/04/22 22:29 10/04/22 22:29 10/05/22 00:00 Temperature Pulse Rate 76 Pulse Rate [Monitor] 82 82 Respiratory Rate 14 14 Blood Pressure Blood Pressure [Left Arm] Blood Pressure [Right Arm] Pulse Oximetry 97 Oxygen Delivery Method Room Air 10/05/22 02:00 10/05/22 04:00 10/05/22 05:44 Temperature 97.7 F Pulse Rate 81 81 89 Pulse Rate [Monitor] Respiratory Rate 18 Blood Pressure Blood Pressure [Left Arm] 153/61 H Blood Pressure [Right Arm] Pulse Oximetry 93 L Oxygen Delivery Method Room Air 10/05/22 06:00 10/05/22 08:04 10/05/22 13:24 Temperature 97.7 F Pulse Rate 81 87 70 Pulse Rate [Monitor] Respiratory Rate 18 Blood Pressure Blood Pressure [Left Arm] 138/74 H Blood Pressure [Right Arm] Pulse Oximetry 95 Oxygen Delivery Method Room Air Results Labs Labs: Short CBC 10/04/22 10/05/22 Range/Units 17:00 04:22 WBC 5.2 5.3 (4.0-11.0) 10^3/uL Hgb 11.9 L 12.0 L (14.0-18.0) g/dL Hct 35.2 L 35.6 L (42.0-54.0) % Plt Count 180 180 (150-450) 10^3/uL BMP 10/04/22 10/05/22 17:00 09:15 Sodium 129 L 135 L Potassium 4.1 4.6 Chloride 96 L 101 Carbon Dioxide 26.0 22.9 BUN 26.0 H 25.0 H Creatinine 0.99 1.04 Glucose 140 H 222 H Calcium 8.5 8.7 Liver Function 10/04/22 10/05/22 Range/Units 17:00 09:15 Total Bilirubin 0.3 0.3 (0.2-1.0) mg/dL AST 16 19 (15-37) U/L ALT 21 27 (16-63) U/L Alkaline Phosphatase 68 67 (46-116) U/L Albumin 3.7 3.6 (3.4-5.0) g/dL Assessment and Plan Assessment and Plan (1) Double vision: Assessment and Plan: original CTA of the head and neck showed chronic small vessel ischemic changes, but no carotid artery stenosis and a mild stenosis of the left vertebral artery no other acute findings for stroke. MRI was suggested by telemetry stroke however patient has a implanted spinal stimulator so cannot perform MRI. A repeat CT scan of the brain did not show any acute stroke when compared to the one done last night. I opted to not use IV contrast given patient is on metformin and did not want to induce a contrast nephropathy. Patient did have an echocardiogram which showed systolic function hyperdynamic with an ejection fraction of 65-70 percent, mild left ventricular hypertrophy, biatrial enlargement, with grade 2 moderate diastolic dysfunction. Also had mildly elevated right ventricular systolic pressures and moderate aortic valve stenosis. 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 The results of his echocardiogram was discussed with patient he does have a value analysis coordinator who he follows with and is due to see him for his routine care in November. We'll recommend closer evaluation as I do not have a comparison for this echocardiogram. Consultation by telemetry stroke. low suspicion this is active stroke or CVA symptoms (2) Headache: Assessment and Plan: this could be an atypical migraine, cluster headache, or underlying optic nerve issue. All seems to be focused more behind the right eye, we'll get him a close outpatient follow-up with ophthalmology (3) Afib: Assessment and Plan: continue lisinopril and eliquis (4) HTN (hypertension): Assessment and Plan: stable (5) Dyslipidemia: Assessment and Plan: lipids stable 157/99/44/68 continue lovastatin (6) Obesity: (7) Type 2 diabetes mellitus: Assessment and Plan: will need to hold metformin due to contrast for 3 days. ha1c 6.0 Plan full code patient admitted in observation status and is not expected to stay more than 2 midnights eliquis for DVT prophylaxis
--- NOTE | 2022-10-05 14:43 | PM.DS1 ---
DS: Providers Provider Date of admission: 10/04/22 22:21 Primary care physician: Toni Sexton Admitting clinician: Edin Larkin Consults: 10/05/22 09:09 Consult to Telestroke Routine Consulting Provider: Hospitalist Attending physician on discharge: Maggie Pickett DS: Diagnosis Discharge Diagnosis (1) Double vision: Assessment and plan: original CTA of the head and neck showed chronic small vessel ischemic changes, but no carotid artery stenosis and a mild stenosis of the left vertebral artery no other acute findings for stroke. MRI was suggested by telemetry stroke however patient has a implanted spinal stimulator so cannot perform MRI. A repeat CT scan of the brain did not show any acute stroke when compared to the one done last night. I opted to not use IV contrast given patient is on metformin and did not want to induce a contrast nephropathy. Patient did have an echocardiogram which showed systolic function hyperdynamic with an ejection fraction of 65-70 percent, mild left ventricular hypertrophy, biatrial enlargement, with grade 2 moderate diastolic dysfunction. Also had mildly elevated right ventricular systolic pressures and moderate aortic valve stenosis. 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 The results of his echocardiogram was discussed with patient he does have a complex care nurse who he follows with and is due to see him for his routine care in November. We'll recommend closer evaluation as I do not have a comparison for this echocardiogram. Consultation by telemetry stroke no further recs. low suspicion this is active stroke or CVA symptoms (2) Headache: Assessment and plan: this could be an atypical migraine, cluster headache, or underlying optic nerve issue. All seems to be focused more behind the right eye, we'll get him a close outpatient follow-up with ophthalmology (3) Afib: Assessment and plan: continue lisinopril and eliquis (4) HTN (hypertension): Assessment and plan: stable on lisinopril (5) Dyslipidemia: Assessment and plan: lipids stable 157/99/44/68 continue lovastatin (6) Obesity: (7) Type 2 diabetes mellitus: Assessment and plan: will need to hold metformin due to contrast for 3 days. ha1c 6.0 DS: Summary Time Spent with Patient Time attestation: Total time spent providing and/or coordinating discharge services: Exam Narrative Exam Narrative: no change in exam since H and P exam performed on same date Constitutional Vital Signs - 24 hr 10/04/22 16:52 10/04/22 17:24 10/04/22 17:30 Temperature 97.8 F Pulse Rate 63 Pulse Rate [Monitor] 73 Respiratory Rate 16 18 Blood Pressure Blood Pressure [Left Arm] Blood Pressure [Right Arm] 150/81 H Pulse Oximetry 97 98 97 Oxygen Delivery Method Room Air 10/04/22 17:34 10/04/22 17:35 10/04/22 17:47 Temperature Pulse Rate 62 74 76 Pulse Rate [Monitor] Respiratory Rate 15 17 13 Blood Pressure 142/69 H 183/124 H Blood Pressure [Left Arm] Blood Pressure [Right Arm] Pulse Oximetry 97 97 96 Oxygen Delivery Method 10/04/22 17:48 10/04/22 18:00 10/04/22 18:20 Temperature Pulse Rate 69 84 Pulse Rate [Monitor] Respiratory Rate 16 16 Blood Pressure 125/81 H 141/74 H Blood Pressure [Left Arm] Blood Pressure [Right Arm] Pulse Oximetry 96 99 Oxygen Delivery Method 10/04/22 18:29 10/04/22 18:30 10/04/22 18:45 Temperature Pulse Rate 73 68 60 Pulse Rate [Monitor] Respiratory Rate 16 17 11 L Blood Pressure 134/70 H 110/49 L Blood Pressure [Left Arm] Blood Pressure [Right Arm] Pulse Oximetry 97 96 96 Oxygen Delivery Method 10/04/22 19:00 10/04/22 19:15 10/04/22 19:30 Temperature Pulse Rate 70 74 87 Pulse Rate [Monitor] Respiratory Rate 11 L 11 L 17 Blood Pressure 101/66 119/54 L Blood Pressure [Left Arm] Blood Pressure [Right Arm] Pulse Oximetry 96 96 95 Oxygen Delivery Method 10/04/22 19:45 10/04/22 19:46 10/04/22 19:46 Temperature Pulse Rate 79 74 68 Pulse Rate [Monitor] Respiratory Rate 20 14 13 Blood Pressure 154/80 H 154/80 H Blood Pressure [Left Arm] Blood Pressure [Right Arm] Pulse Oximetry 98 97 95 Oxygen Delivery Method 10/04/22 20:00 10/04/22 20:30 10/04/22 20:30 Temperature Pulse Rate 70 67 67 Pulse Rate [Monitor] Respiratory Rate 15 12 12 Blood Pressure 135/75 H 145/77 H 145/77 H Blood Pressure [Left Arm] Blood Pressure [Right Arm] Pulse Oximetry 97 94 L 95 Oxygen Delivery Method 10/04/22 21:00 10/04/22 21:30 10/04/22 22:01 Temperature Pulse Rate 63 68 68 Pulse Rate [Monitor] Respiratory Rate 13 13 12 Blood Pressure 111/54 L 107/58 L 140/86 H Blood Pressure [Left Arm] Blood Pressure [Right Arm] Pulse Oximetry 95 Oxygen Delivery Method 10/04/22 22:30 10/04/22 22:20 10/04/22 22:29 Temperature 97.5 F L Pulse Rate 86 82 Pulse Rate [Monitor] Respiratory Rate 16 Blood Pressure 140/80 H Blood Pressure [Left Arm] Blood Pressure [Right Arm] 159/90 H Pulse Oximetry 97 Oxygen Delivery Method Room Air 10/04/22 22:29 10/04/22 22:29 10/05/22 00:00 Temperature Pulse Rate 76 Pulse Rate [Monitor] 82 82 Respiratory Rate 14 14 Blood Pressure Blood Pressure [Left Arm] Blood Pressure [Right Arm] Pulse Oximetry 97 Oxygen Delivery Method Room Air 10/05/22 02:00 10/05/22 04:00 10/05/22 05:44 Temperature 97.7 F Pulse Rate 81 81 89 Pulse Rate [Monitor] Respiratory Rate 18 Blood Pressure Blood Pressure [Left Arm] 153/61 H Blood Pressure [Right Arm] Pulse Oximetry 93 L Oxygen Delivery Method Room Air 10/05/22 06:00 10/05/22 08:04 10/05/22 13:24 Temperature 97.7 F Pulse Rate 81 87 70 Pulse Rate [Monitor] Respiratory Rate 18 Blood Pressure Blood Pressure [Left Arm] 138/74 H Blood Pressure [Right Arm] Pulse Oximetry 95 Oxygen Delivery Method Room Air DS: Data Data Completed and Pending Labs on day of discharge: Labs from last 24 hours 10/05/22 10/05/22 10/05/22 11:19 09:15 07:23 WBC RBC Hgb Hct MCV MCH MCHC RDW Plt Count MPV Neut % (Auto) Lymph % (Auto) [place] % (Auto) Eos % (Auto) Baso % (Auto) Neut # (Auto) Lymph # (Auto) [place] # (Auto) Eos # (Auto) Baso # (Auto) Abs Immat Gran (auto) Imm/Tot Granulo (auto) PT INR APTT Sodium 135 L Potassium 4.6 Chloride 101 Carbon Dioxide 22.9 Anion Gap 15.7 BUN 25.0 H Creatinine 1.04 Est GFR ( Amer) >60 Est GFR (Non-Af Amer) >60 BUN/Creatinine Ratio 24.0 Glucose 222 H Estimat Average Glucose 126 Hemoglobin A1c 6.0 Calcium 8.7 Total Bilirubin 0.3 AST 19 ALT 27 Alkaline Phosphatase 67 Troponin I High Sens Total Protein 7.3 Albumin 3.6 Globulin 3.7 Albumin/Globulin Ratio 1.0 Triglycerides Cholesterol LDL Cholesterol, Calc VLDL Cholesterol HDL Cholesterol Cholesterol/HDL Ratio TSH 0.514 POC Glucose 180 H 217 H 10/05/22 10/04/22 10/04/22 04:22 17:00 16:59 WBC 5.3 5.2 RBC 3.95 L 3.89 L Hgb 12.0 L 11.9 L Hct 35.6 L 35.2 L MCV 90.1 90.5 MCH 30.4 30.6 MCHC 33.7 33.8 RDW 13.5 13.9 Plt Count 180 180 MPV 9.8 9.9 Neut % (Auto) 83.6 H 58.7 Lymph % (Auto) 12.6 L 26.7 [place] % (Auto) 2.8 9.8 Eos % (Auto) 0.2 L 3.8 Baso % (Auto) 0.2 0.6 Neut # (Auto) 4.5 3.1 Lymph # (Auto) 0.7 L 1.4 [place] # (Auto) 0.2 L 0.5 Eos # (Auto) 0.0 0.2 Baso # (Auto) 0.0 0.0 Abs Immat Gran (auto) 0.03 0.02 Imm/Tot Granulo (auto) 0.6 H 0.4 PT 10.3 INR 0.97 APTT 35.0 Sodium 129 L Potassium 4.1 Chloride 96 L Carbon Dioxide 26.0 Anion Gap 11.1 BUN 26.0 H Creatinine 0.99 Est GFR ( Amer) >60 Est GFR (Non-Af Amer) >60 BUN/Creatinine Ratio 26.3 Glucose 140 H Estimat Average Glucose Hemoglobin A1c Calcium 8.5 Total Bilirubin 0.3 AST 16 ALT 21 Alkaline Phosphatase 68 Troponin I High Sens 18.5 Total Protein 7.4 Albumin 3.7 Globulin 3.7 Albumin/Globulin Ratio 1.0 Triglycerides 68 Cholesterol 157 LDL Cholesterol, Calc 99.4 VLDL Cholesterol 13.6 HDL Cholesterol 44 Cholesterol/HDL Ratio 3.6 TSH POC Glucose 139 H Discharge Plan Discharge Disposition: Home, Self-Care (OBS FBC) Condition: Good Discharge Medications: Continued Eliquis 5 mg tablet 5 mg PO BID lisinopril 20 mg tablet 20 mg PO DAILY lovastatin 20 mg tablet 20 mg PO DAILY omeprazole 40 mg capsule,delayed release(DR/EC) 40 mg PO DAILY Held metformin 500 mg tablet 500 mg PO BID Hold Instructions: Resume on 10/07/22. Activity: increase activity as tolerated Diet: advance to your usual diet Follow Up Appointments: New patient appointment with publicity person Dr. Sawant -mondayOctober 10 at 1:30, in [facility] . Brick buildings to left of hospital,they are marked. Patient will have eyes dilated and plan to be there a while. [phone] [facility] [address] Saab, 1-2 weeks
--- NOTE | 2022-10-06 15:40 | CM.DCFOLLOWU ---
Person spoke with: How are you feeling? How is your pain? Did you understand your discharge instructions? Do you have any questions about your discharge instructions? Were you given any prescriptions at discharge? Were you able to get your prescriptions filled? Do you understand how to take your medications as ordered? Do you have any questions about your follow up appointment and do you plan to keep your follow up appointment? Is there anything else that you would like to discuss? Questions/Comments/Concerns/Other: No answer 10/06/22
--- NOTE | 2022-10-10 15:38 | CM.DCFOLLOWU ---
Person spoke with: Person who answered telephone states This is wrong number I do not know a Kaleb. How are you feeling? How is your pain? Did you understand your discharge instructions? Do you have any questions about your discharge instructions? Were you given any prescriptions at discharge? Were you able to get your prescriptions filled? Do you understand how to take your medications as ordered? Do you have any questions about your follow up appointment and do you plan to keep your follow up appointment? Is there anything else that you would like to discuss? Questions/Comments/Concerns/Other:
== END 2022-10-05 15:42 | disposition home or self-care (01) ==
LOC: ER 22:08 → MS 22:26
PROVIDERS: Physician Assistant; Admitting Provider Internal Medicine; Emergency Provider Emergency Medicine Emergency Medical Services; PCP Physician Assistant; Visit Provider Family Medicine
DX: H53.2 Diplopia (principal); R51.9 Headache, unspecified; I10 Essential (primary) hypertension; E78.5 Hyperlipidemia, unspecified; I48.20 Chronic atrial fibrillation, unspecified; E11.9 Type 2 diabetes mellitus without complications; E66.9 Obesity, unspecified; I65.02 Occlusion and stenosis of left vertebral artery; Z79.01 Long term (current) use of anticoagulants; Z87.891 Personal history of nicotine dependence; Z79.899 Other long term (current) drug therapy; Z79.84 Long term (current) use of oral hypoglycemic drugs; Z68.33 Body mass index [BMI] 33.0-33.9, adult
CPT/HCPCS: 36415; 70450; 70496; 70498; 80053; 80061; 83036; 84443; 84484; 85025; 85610; 85730; 93005; 93306; 96372; 96374; 96375; 99285; G0378; J1100; Q3014; Q9967